=== PATIENT | male | born 1990 | race Caucasian/White ===

== ENCOUNTER 2019-08-18 14:36 | Emergency (ER) | payer BC, SELFPAY ==
[2019-08-18 14:51] VITALS: BP 148/105; PULSE 110; RESP 16; TEMP 37.6; O2SAT 97
--- NOTE | 2019-08-18 15:01 | ED.URI ---
HPI - URI/Sore Throat General Chief Complaint: Upper Respiratory Infection Stated Complaint: Sore throat/Congestion Time Seen by Provider: 08/18/19 14:52 Source: patient and RN notes reviewed Mode of arrival: ambulatory Limitations: no limitations History of Present Illness HPI Narrative: Patient presents today complaining of nasal congestion and slight sore throat since yesterday. Took some NyQuil this morning along with some sinus medication, slept for the following 6 hours, woke up and was feeling well. Since he called into work this morning, he needed to be evaluated. Denies fever, cough, sweats or chills, ear pain, shortness of breath. States that he does have intermittent seasonal allergy symptoms. MD elicited complaint: nasal congestion Related Data Home Medications Medication Instructions Recorded Confirmed No Home Medications 08/18/19 08/18/19 Allergies Allergy/AdvReac Type Severity Reaction Status Date / Time Penicillins Allergy Mild Rash Verified 02/25/19 13:39 venom-honey bee Allergy Unknown Anaphylactic Verified 02/25/19 13:39 Shock Review of Systems Review of Systems: Narrative: CONSTITUTIONAL: Denies body aches, fever, chills, or sweats. EYES: Denies visual changes, redness, or discharge. ENT: Denies rhinorrhea, or otalgia.+ Congestion, sore throat CARDIOVASCULAR: Denies chest pain, palpitations, or edema. RESPIRATORY: Denies cough or dyspnea. GASTROINTESTINAL: Denies abdominal pain, nausea, vomiting, or diarrhea. GENITOURINARY: Denies dysuria or hematuria. SKIN: Denies rash, itching, or wounds. MUSCULOSKELETAL: Denies back pain, joint pain, or myalgia. NEUROLOGIC: Denies headache, numbness, tingling, or weakness. PSYCH: Denies depression or anxiety. [facility] Social History Social History (Updated 02/25/19 @ 13:47 by Zee Romero) Smoking status: Current every day smoker Tobacco type: cigarettes Alcohol intake: never Substance use: never Gender identity (if verbalized by the patient): Male Comments At time of signature, I have reviewed and agree with nursing past medical, surgical, social and family history unless otherwise noted. Please see nursing chart for further information. There is no relevant family history pertinent to the presenting complaint Exam Narrative: Exam Narrative: GENERAL: Well-appearing, well-nourished, and in no acute distress. HEAD: Normocephalic, atraumatic. EYES: EOMI. No redness or drainage. Conjunctivae normal. ENT: Mucous membranes pink and moist. Nares clear. No rhinorrhea. TMs normal bilaterally. Throat normal. Uvula midline. NECK: Normal AROM. Supple. No lymphadenopathy. CHEST: No respiratory distress. Clear to auscultation. HEART: Regular rate and rhythm. No murmur appreciated. Normal peripheral pulses. EXTREMITIES: Normal range of motion. No edema. SKIN: Warm, dry, no rash. Capillary refill normal. Normal skin turgor. NEURO: No focal deficits. Alert and oriented x3. Gait steady. PSYCH: Normal affect. No signs of depression or anxiety. Course Vital Signs Vital signs: Vital Signs Temperature 99.6 F 08/18/19 14:51 Pulse Rate 110 H 08/18/19 14:51 Respiratory Rate 16 08/18/19 14:51 Blood Pressure 148/105 H 08/18/19 14:51 Pulse Oximetry 97 08/18/19 14:51 Temperature 99.6 F 08/18/19 14:51 Pulse Rate 110 H 08/18/19 14:51 Respiratory Rate 16 08/18/19 14:51 Blood Pressure 148/105 H 08/18/19 14:51 Pulse Oximetry 97 08/18/19 14:51 Reviewed. Pt has been instructed to follow up with his PCP regarding his elevated blood pressure today. MDM - URI/Sore Throat Differential Diagnosis Differential diagnosis: Likely upper respiratory infection, sinusitis, viral infection and pharyngitis Critical Care Time Critical Care Time Critical Care Time: No Discharge Plan Discharge Clinical Impression: Allergic rhinitis Qualifiers: Allergic rhinitis trigger: unspecified Allergic rhinitis seasonality: unspecified Qu
== END 2019-08-18 15:11 | disposition home or self-care (01) ==
PROVIDERS: Emergency Provider Nurse Practitioner
DX: J30.9 Allergic rhinitis, unspecified (principal); F17.210 Nicotine dependence, cigarettes, uncomplicated
CPT/HCPCS: 99211; G0463

== ENCOUNTER 2020-10-27 12:52 | Emergency (ER) | payer BC, SELFPAY ==
[2020-10-27 13:03] VITALS: BP 161/103; PULSE 98; RESP 16; TEMP 37; O2SAT 99
--- NOTE | 2020-10-27 13:32 | ED.SKABFB ---
HPI - Skin/Abscess/Foreign Bdy General Chief complaint: Skin/Abscess/Foreign Body Stated complaint: Insect bite on side Time Seen by Provider: 10/27/20 13:25 Source: patient and RN notes reviewed Mode of arrival: ambulatory Limitations: no limitations History of Present Illness HPI narrative: Patient presents today complaining of a draining lesion to the right hip, possibly a spider bite. A pimple-like lesion started 3 days ago and has been worsening since onset. He has been applying Neosporin without relief. States the area is draining clear fluid. It is becoming more painful and red. MD complaint: insect bite/sting and abscess/boil Related Data Allergies Allergy/AdvReac Type Severity Reaction Status Date / Time Penicillins Allergy Mild Rash Verified 02/25/19 13:39 venom-honey bee Allergy Unknown Anaphylactic Verified 02/25/19 13:39 Shock Review of Systems Review of Systems: Narrative: CONSTITUTIONAL: Denies body aches, fever, chills, or sweats. EYES: Denies visual changes, redness, or discharge. ENT: Denies rhinorrhea, congestion, sore throat, or otalgia. CARDIOVASCULAR: Denies chest pain, palpitations, or edema. RESPIRATORY: Denies cough or dyspnea. GASTROINTESTINAL: Denies abdominal pain, nausea, vomiting, or diarrhea. GENITOURINARY: Denies dysuria or hematuria. SKIN: Denies rash, itching. + Possible insect bite to the right hip MUSCULOSKELETAL: Denies back pain, joint pain, or myalgia. NEUROLOGIC: Denies headache, numbness, tingling, or weakness. PSYCH: Denies depression or anxiety. [facility] Social History Social History (Updated 02/25/19 @ 13:47 by Zee Romero) Smoking status: Current every day smoker Tobacco type: cigarettes Alcohol intake: never Substance use: never Gender identity (if verbalized by the patient): Male Comments At time of signature, I have reviewed and agree with nursing past medical, surgical, social and family history unless otherwise noted. Please see nursing chart for further information. There is no relevant family history pertinent to the presenting complaint Exam Narrative: Exam Narrative: GENERAL: Well-appearing, well-nourished, and in no acute distress. HEAD: Normocephalic, atraumatic. EYES: EOMI. No redness or drainage. Conjunctivae normal. ENT: Mucous membranes pink and moist. NECK: Normal AROM. CHEST: No respiratory distress. EXTREMITIES: Normal range of motion. No edema. SKIN: Warm, dry, no rash. Capillary refill normal. Normal skin turgor. 8 x 15 cm area of redness with a 5 x 5 cm round area of induration to the right lateral hip with 0.5 cm round ruptured superficial vesicle draining serous fluid. Mildly tender to palpation. NEURO: No focal deficits. Alert and oriented x3. Gait steady. PSYCH: Normal affect. No signs of depression or anxiety. Course Vital Signs Vital signs: Vital Signs Temperature 98.6 F 10/27/20 13:03 Pulse Rate 98 10/27/20 13:03 Respiratory Rate 16 10/27/20 13:03 Blood Pressure 161/103 H 10/27/20 13:03 Pulse Oximetry 99 10/27/20 13:03 Temperature 98.6 F 10/27/20 13:03 Pulse Rate 98 10/27/20 13:03 Respiratory Rate 16 10/27/20 13:03 Blood Pressure 161/103 H 10/27/20 13:03 Pulse Oximetry 99 10/27/20 13:03 Reviewed. Pt has been instructed to follow up with his PCP regarding his elevated blood pressure today. MDM - Skin/Abscess/Foreign Bdy Differential Diagnosis Differential diagnosis: Likely abscess of skin or subcutaneous tissue, cellulitis, insect bites and impetigo Critical Care Time Critical Care Time Critical Care Time: No Discharge Plan Discharge Clinical Impression: Cellulitis Qualifiers: Site of cellulitis: extremity Site of cellulitis of extremity: lower extremity Laterality: right Qualified Code(s): L03.115 - Cellulitis of right lower limb Patient Disposition: Home, Self-Care Condition: Stable Instructions: Antibiotic Form, Cellulitis (ED) Additional Instructions
== END 2020-10-27 13:38 | disposition home or self-care (01) ==
PROVIDERS: Emergency Provider Nurse Practitioner
DX: L03.115 Cellulitis of right lower limb (principal); F17.210 Nicotine dependence, cigarettes, uncomplicated
CPT/HCPCS: 99213; G0463

== ENCOUNTER 2021-01-17 13:02 | Emergency (ER) | payer BC, SELFPAY ==
--- NOTE | 2021-01-17 13:09 | ED.SKABFB ---
HPI - Skin/Abscess/Foreign Bdy General Chief complaint: Skin/Abscess/Foreign Body Stated complaint: yeast infection Time Seen by Provider: 01/17/21 13:15 Source: patient and RN notes reviewed Mode of arrival: ambulatory Limitations: no limitations History of Present Illness HPI narrative: 30-year-old male presents to the [facility] with complaints of I think I have a yeast infection on my penis. States has been there for a couple of weeks and keeps getting worse. Has not seen anybody. No treatment prior to arrival MD complaint: rash Related Data Allergies Allergy/AdvReac Type Severity Reaction Status Date / Time Penicillins Allergy Mild Rash Verified 02/25/19 13:39 venom-honey bee Allergy Unknown Anaphylactic Verified 02/25/19 13:39 Shock Review of Systems Review of Systems: All systems reviewed & are unremarkable except as noted in HPI and below Constitutional: Constitutional: Reports no additional constitutional complaints, Denies chills and Denies fever(s) Eyes: Eyes: Reports no additional eye complaints ENT: Reports system reviewed and no additional complaints, except as documented Cardiovascular: Cardiovascular: Reports no additional cardiovascular complaints Respiratory: Respiratory: Reports no additional respiratory complaints Gastrointestinal: Gastrointestinal: Reports no additional gastrointestinal complaints Genitourinary: Genitourinary: Reports as per HPI, Reports genital lesions, Denies dysuria, Denies penile discharge, Denies testicular pain, Denies urinary frequency and Denies urinary incontinence Musculoskeletal: Musculoskeletal: Reports no additional musculoskeletal complaints Integumentary/Breasts: Skin/Breast: Reports as per HPI Neurologic: Reports system reviewed and no additional complaints, except as documented Psychiatric: Psychiatric: Reports no additional psychiatric complaints Allergic/Immunologic: Allergic/Immunologic: Reports no additional allergic/immunologic complaints [facility] Past Medical History Medical History No significant medical problems Surgical History Surgical History (Updated 01/17/21 @ 19:17 by Margarita Escalera) No significant past surgical history Social History Social History Smoking status: Current every day smoker Tobacco type: cigarettes Alcohol intake: never Substance use: never Gender identity (if verbalized by the patient): Male Comments At the time of my signature, I reviewed and agree with the nursing past medical, surgical, social, and family history. There is no relevant family history pertinent to the patient complaint. Exam Const: General: healthy appearing, no acute distress and alert Nutritional Appearance: well nourished and obese Orientation/consciousness: patient oriented x3 Limitations: no limitations HENMT: Head: normal to inspection Eyes: Pupils: Equal, round and reactive pupils present Neck: Neck: normal visual inspection, no lymphadenopathy and no meningeal signs Chest: Chest palpation & inspection: normal inspection of the chest Resp: Effort & Inspection: normal respiratory effort Auscultation: clear to auscultation bilaterally Cardio: Rate: regular rate Rhythm: regular rhythm : Male General Exam: No ecchymosis and Yes erythema (Head of penis) Penis: Yes erythematous, Yes Localized penile swelling present and No Genital lesions present Scrotum: scrotum normal Testes: Testes normal Other: Chaperoned by Vidhi AVILES. Head of penis was red, inflamed. Collection of frequent white yeast noted around penis shaft and head. Back/Spine/Pelvis: Back: no CVA tenderness Skin: General skin exam: normal color Neuro: General: patient oriented x3, moves all extremities, no meningeal signs and no focal motor deficits Speech: normal speech Gait exam (Neuro): Normal gait present Extrem: General: normal to inspection Psych:
[2021-01-17 13:21] VITALS: BP 144/71; PULSE 118; RESP 18; TEMP 35.7; O2SAT 99
== END 2021-01-17 13:30 | disposition home or self-care (01) ==
PROVIDERS: Emergency Provider Nurse Practitioner
DX: B37.49 Other urogenital candidiasis (principal); F17.210 Nicotine dependence, cigarettes, uncomplicated
CPT/HCPCS: 99213; G0463

== ENCOUNTER 2021-03-22 08:46 | Emergency (ER) | payer BC, SELFPAY ==
[2021-03-22 08:57] VITALS: BP 152/94; PULSE 113; RESP 18; TEMP 36.7; O2SAT 100
--- NOTE | 2021-03-22 09:57 | ED.URI ---
HPI - URI/Sore Throat General Chief Complaint: Skin/Abscess/Foreign Body Stated Complaint: Yeast Infection Time Seen by Provider: 03/22/21 09:57 Source: patient Mode of arrival: ambulatory Limitations: no limitations History of Present Illness HPI Narrative: Berry Wallis is a 30 yo male with no known PMH (does not have a pcp) who has a rash on his penis that is tender and gallagher when he urinates. Is unknown whether he is diabetic as he has not been to a primary care doctor and his blood pressure is also elevated. It appears that the patient has had similar complaints and vital signs on the last visit few months ago Related Data Allergies Allergy/AdvReac Type Severity Reaction Status Date / Time Penicillins Allergy Mild Rash Verified 02/25/19 13:39 venom-honey bee Allergy Unknown Anaphylactic Verified 02/25/19 13:39 Shock Review of Systems Review of Systems: CONSTITUTIONAL: Denies fever, chills, sweats. EYES: Denies visual changes, redness, discharge. ENT: Denies rhinorrhea, congestion, sore throat, otalgia. CARDIOVASCULAR: Denies chest pain, palpitations, edema. RESPIRATORY: Denies dyspnea, wheezing, cough GASTROINTESTINAL: Denies abdominal pain, nausea, vomiting, diarrhea. GENITOURINARY: Denies dysuria, hematuria, abnormal discharge SKIN: Denies rash or itching. NEUROLOGIC: Denies numbness, or focal weakness. PSYCHIATRIC: Denies anxiety or depression. Depression end of penis recurrent PMFSH Past Medical History Medical History (Updated 03/22/21 @ 10:19 by Nicolette Cohn CNP) High blood pressure Social History Social History (Updated 03/22/21 @ 10:11 by Nicolette Cohn CNP) Smoking status: Current every day smoker Tobacco type: cigarettes Alcohol intake: current Alcohol use details: 2 pints on weekend Substance use: never Gender identity (if verbalized by the patient): Male Comments At time of signature, I agree with nursing past medical, surgical, social and family history. There is no relevant family history pertinent to the presenting complaint. Exam Narrative: GENERAL: This is a well-nourished, well-developed patient, in mild distress. HEAD: normocephalic, atraumatic. EYES: Sclera clear/white. Vision is grossly intact. EARS: External ears normal, . Hearing grossly intact. NOSE: External nose normal without nasal discharge, nares without redness, no rhinorrhea. THROAT: Mucous membranes moist, NECK: Neck supple, CARDIOVASCULAR: Regular rate and rhythm without murmurs, gallops, or rubs. RESPIRATORY: Clear to auscultation. Breath sounds equal bilaterally. No wheezes, rales, or rhonchi. GASTROINTESTINAL: Abdomen soft, non-tender, : Rash and open lesion at end of penis, patient is uncircumcised SKIN: warm, intact with no suspicious lesions or rash, good texture and turgor. NEURO: awake, alert, and oriented to person, place and time. There were no obvious focal neurologic abnormalities. Steady gait EXTREMITIES: Normal range of motion. BACK: Nontender without deformity Course Course Emergency Course: Patient has recurrent visit for yeast infection on the end of his penis. His blood pressure remains elevated as it was at the last visit; Because of recurrent yeast infection in the male blood sugar was checked and is 328 Patient started on low-dose lisinopril for his blood pressure that is elevated at 152/94 out and is recurrent He is sent to a primary care physician for diabetes management and re-evaluation of BP management Vital Signs Vital signs: Vital Signs Temperature 98.0 F 03/22/21 08:57 Pulse Rate 113 H 03/22/21 08:57 Respiratory Rate 18 03/22/21 08:57 Blood Pressure 152/94 H 03/22/21 08:57 Pulse Oximetry 100 03/22/21 08:57 Temperature 98.0 F 03/22/21 08:57 Pulse Rate 113 H 03/22/21 08:57 Respiratory Rate 18 03/22/21 08:57 Blood Pressure 152/94 H 03/22/21 08:57 Pulse Oximetry 100 03/22/21 08:57 MDM - URI/Sore Throat Differential Diag
[2021-03-22 10:17] LABS: Glucose Point of Care 328 mg/dl (65-105)
--- NOTE | 2021-03-22 11:27 | PC.NURSE ---
1015-- accucheck is 328mg/dl
== END 2021-03-22 10:27 | disposition home or self-care (01) ==
PROVIDERS: Emergency Provider Nurse Practitioner
DX: B37.49 Other urogenital candidiasis (principal); E11.9 Type 2 diabetes mellitus without complications
CPT/HCPCS: 82948; 99213; G0463

== ENCOUNTER 2022-03-24 08:10 | Emergency (ER) | payer OTHER, SELFPAY ==
--- NOTE | 2022-03-24 08:12 | ED.URI ---
HPI - URI/Sore Throat General Chief Complaint: Upper Respiratory Infection Stated Complaint: Sore Throat, Cough Time Seen by Provider: 03/24/22 08:16 Source: patient, RN notes reviewed and old records reviewed Mode of arrival: ambulatory Limitations: no limitations History of Present Illness HPI Narrative: 31-year-old male presents to the [facility] with complaints of sore throat cough since Thursday after using an E cigarette. Has been coughing with sore throat. Took 1 DayQuil yesterday. No other treatment prior to arrival. Has a history of pre diabetes high cholesterol and hypertension. Patient denies any chest pain, abdominal pain or fevers. No nausea vomiting or diarrhea. MD elicited complaint: cough and sore throat Onset (ago): day(s) (2) Consistency: constant Related Data Allergies Allergy/AdvReac Type Severity Reaction Status Date / Time venom-honey bee Allergy Severe Anaphylactic Verified 03/24/22 11:21 Shock Penicillins Allergy Mild Rash Verified 03/24/22 11:21 Review of Systems Review of Systems: All systems reviewed & are unremarkable except as noted in HPI and below Constitutional: Constitutional: Reports no additional constitutional complaints Eyes: Eyes: Reports no additional eye complaints ENT: Reports as per HPI and Reports sore throat Cardiovascular: Cardiovascular: Reports no additional cardiovascular complaints, Denies chest pain and Denies dyspnea Respiratory: Respiratory: Reports as per HPI, Denies chest congestion, Reports cough and Denies dyspnea Gastrointestinal: Gastrointestinal: Reports no additional gastrointestinal complaints, Denies abdominal pain, Denies nausea and Denies vomiting Musculoskeletal: Musculoskeletal: Reports no additional musculoskeletal complaints Integumentary/Breasts: Skin/Breast: Reports system reviewed and no additional complaints, except as docu Neurologic: Reports system reviewed and no additional complaints, except as documented Psychiatric: Psychiatric: Reports no additional psychiatric complaints Allergic/Immunologic: Allergic/Immunologic: Reports no additional allergic/immunologic complaints [facility] Past Medical History Medical History (Updated 03/24/22 @ 08:29 by Margarita Escalera APRN) High blood pressure High cholesterol Social History Social History Smoking status: Current every day smoker Tobacco type: cigarettes Alcohol intake: current Alcohol use details: 2 pints on weekend Substance use: never Gender identity (if verbalized by the patient): Male Comments At the time of my signature, I reviewed and agree with the nursing past medical, surgical, social, and family history. There is no relevant family history pertinent to the patient complaint. Exam Const: General: cooperative, healthy appearing, comfortable, no acute distress, well developed, alert, average body habitus and well nourished Nutritional Appearance: well nourished and obese Orientation/consciousness: patient oriented x3 Limitations: no limitations HENMT: Head: normal to inspection Ears: hearing grossly normal bilaterally and external ears normal Face/Nose/Sinus: Normal external nose present, Normal nares present, Normal nasal mucous membranes and turbinates present and normal facial exam Face and sinus: normal facial exam Mouth: Yes Normal oral and palatal mucosa present, Yes lip normal and Yes moist mucous membranes Throat: posterior oropharynx normal, tonsils normal, uvula midline and no uvular edema Eyes: General: appearance normal, both eyes and all related structures Alignment and Position: alignment normal Periorbital: periorbital findings normal Conjunctivae: conjunctivae normal Pupils: Equal, round and reactive pupils present EOM: EOMs intact bilaterally Neck: Neck: normal visual inspection, full ROM, no lymphadenopathy and no meningeal signs Chest: Chest palpation & inspection: normal inspectio
[2022-03-24 08:15] VITALS: BP 147/78; PULSE 102; RESP 20; TEMP 36.6; O2SAT 99
== END 2022-03-24 08:30 | disposition home or self-care (01) ==
PROVIDERS: Emergency Provider Nurse Practitioner; PCP Emergency Medicine
DX: J40 Bronchitis, not specified as acute or chronic (principal); J02.9 Acute pharyngitis, unspecified; I10 Essential (primary) hypertension; E78.00 Pure hypercholesterolemia, unspecified; R73.03 Prediabetes; F17.210 Nicotine dependence, cigarettes, uncomplicated
CPT/HCPCS: 99211; G0463

== ENCOUNTER 2022-09-25 13:26 | Emergency (ER) | payer OTHER, SELFPAY ==
[2022-09-25] VITALS (15 sets, daily range): BP systolic 155–169; BP diastolic 104–112; PULSE 77–99; RESP 13–28; TEMP 36.5; O2SAT 96–100
--- NOTE | ~2022-09-25 | XR_ITS ---
EXAMINATION: XR chest 2V DATE: 09/25/2022 14:04 INDICATION: Chest pain. TECHNIQUE: Frontal and lateral views of the chest were obtained. COMPARISON: Chest 2 views 02/25/2019 FINDINGS: There is no pneumonia, pleural effusion, or pneumothorax. The heart size is normal. There i s mild chronic anterior wedging of multiple thoracic vertebral bodies. IMPRESSION: 1. No acute cardiopulmonary disease. Reviewed, dictated and finalized at location A.
--- NOTE | 2022-09-25 13:28 | ECG_ITS ---
Rate MO QRSd QT QTc P QRS T Severity 102 156 90 334 435 25 28 16 No Severity Defined SINUS TACHYCARDIA POOR R-WAVE PROGRESSION ABNORMAL RHYTHM ECG COMPARED TO ECG 02/25/2019 12:58:08 NO DIFFERENCE Electronically Signed On 09-26-2022 12:34:10 CDT by Neo Quintero M.D. [facility]
[2022-09-25] MEDS: ASPIRIN 81 MG CHEWABLE TABLET 324 MG PO (13:45)
[2022-09-25 13:46] LABS: Basophils Absolute Auto 0.1 K/mm3 (0.0-0.1); Basophils Percent Auto 0.9 % (0.2-1.2); Eosinophils Absolute Auto 0.1 K/mm3 (0-0.3); Eosinophils Percent Auto 1.4 % (0-4.4); Hemoglobin 14.5 g/dL (14.0-18.0); Immature Granulocyte Absolute 0.04 K/mm3 (0.00-0.031); Immature Granulocyte Percent A 0.4 % (0-0.5); Lymphocytes Percent Auto 30.9 % (18.3-44.2); Mean Corpuscular Hemoglobin 29.8 pg (26-34); Mean Corpuscular Volume 90.3 fl (80-100); Mean Platelet Volume 10.2 fl (7.4-10.4); Monocytes Absolute Auto 0.6 K/mm3 (0.1-0.6); Monocytes Percent Auto 5.9 % (2.6-8.5); Neutrophils Absolute Auto 5.7 K/mm3 (1.3-6.7); Neutrophils Percent Auto 60.5 % (45.5-73.1); Platelet Count Result 227 k/mm3 (150-375); Red Blood Count 4.87 M/mm3 (4.6-6.20); Red Cell Distribution Width 13.5 % (11.5-14.5); White Blood Count 9.4 K/mm3 (4.5-10.0)
[2022-09-25 13:56] LABS: Alanine Aminotransferase 93 U/L (6-50); Albumin Level 4.5 g/dL (3.5-5.1); Alkaline Phosphatase 67 U/L (38-126); Anion Gap 9 mmol/L (8-16); Aspartate Amino Transferase 91 U/L (17-59); Bilirubin,Total 0.7 mg/dL (0.2-1.3); Blood Urea Nitrogen 9 mg/dL (9-20); Calcium 8.2 mg/dL (8.4-10.2); Carbon Dioxide 25 mmol/L (22-30); Chloride 104 mmol/L (98-107); Estimated Glomerular Filt Rate > 60; Glucose 137 mg/dL (65-110); Lipase 35 U/L (23-300); Potassium 3.9 mmol/L (3.4-5.0); Sodium 138 mmol/L (137-145)
[2022-09-25 13:59] LABS: INR 1.1; Partial Thromboplastin Time 25.1 SECONDS (22.3-36.8); Prothrombin Time 14.2 Seconds (11.1-14.7)
[2022-09-25 14:08] LABS: Troponin I < 0.012 ng/mL (0.000-0.034)
--- NOTE | 2022-09-25 14:23 | ED.CHESTPAIN ---
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 for the last 2 days. He denies any aggravating or relieving factors. Patient ran out of lisinopril 5 mg once a day, 2 to 3 weeks ago. Went to see his family physician to get refill. , Patient have a lot of stress at work. He drinks daily at night to calm down. He smokes 1 pack of cigarette every [address] himself to the emergency room. Basically got referred to us because of the epigastric chest tightness. Related Data Allergies Allergy/AdvReac Type Severity Reaction Status Date / Time venom-honey bee Allergy Severe Anaphylactic Verified 09/25/22 14:23 Shock Penicillins Allergy Mild Rash Verified 09/25/22 14:23 Review of Systems Review of Systems: All systems reviewed & are unremarkable except as noted in HPI and below PMFSH Past Medical History Medical History High blood pressure High cholesterol Social History Social History Smoking status: Current every day smoker Tobacco type: cigarettes Alcohol intake: current Alcohol use details: 2 pints on weekend Substance use: never Gender identity (if verbalized by the patient): Male Exam Narrative: General appearance: Well-developed, well-nourished, a little restless Skin: Normal color Head: Normocephalic, nontraumatic Eyes: Clear conjunctiva ENT: Oropharynx normal, ears normal, nose normal Neck: Supple, nontender Chest and respiratory: Airway patent, no respiratory distress, no accessory muscle use Heart: Regular rate/rhythm Abdomen: Soft, nontender, no organomegaly, quiet bowel sounds Vascular: Normal peripheral pulses, normal capillary refill. Musculoskeletal: Normal range of motion, nontender back Neurologic: Alert and oriented ?3, [employer] is normal as tested, no gross motor deficit Course Reevaluation(s) Reevaluation #1: Currently patient is asymptomatic and would like to go home as soon as possible to eat a sandwich Date: 09/25/22 Time: 16:32 Vital Signs Vital signs: Vital Signs Temperature 36.5 C 09/25/22 13:30 Pulse Rate 95 09/25/22 13:30 Respiratory Rate 18 09/25/22 13:30 Blood Pressure 163/106 H 09/25/22 13:30 Pulse Oximetry 98 09/25/22 13:30 Temperature 36.5 C 09/25/22 13:30 Pulse Rate 81 09/25/22 15:31 Respiratory Rate 25 H 09/25/22 15:31 Blood Pressure 160/111 H 09/25/22 15:31 Pulse Oximetry 99 09/25/22 15:31 MDM - Chest Pain MDM Narrative Medical decision making narrative: Patient referred to our emergency room from his family office because of epigastric chest pain tightness for the last 2 days, constant, no aggravating or relieving factors. History of hypertension, ran out of lisinopril 5 mg once a day 2 to 3 weeks ago. Patient denies any shortness of breath or back pain. Blood pressure on arrival to the ED with 163/106. Physical examination showed no significant abnormalities, blood work-up today showed normal white count, normal coags, normal CMP except elevated liver enzymes 91, 93. Patient drinks alcohol every night. First troponin is within normal limit. Chest x-ray showed no acute cardiopulmonary disease, EKG on arrival showed sinus tachycardia at 100 bpm, no acute changes compared to the previous EKG 1 year ago. Patient
[2022-09-25] MEDS: METOPROLOL TARTRATE 50 MG TAB PO (15:04)
[2022-09-25] MEDS: lisinopriL 5 MG TABLET PO (15:04)
[2022-09-25] MEDS: LORazepam (*CRX) 0.5 MG TABLET PO (15:04)
[2022-09-25 15:13] LABS: Lipase 36 U/L (23-300)
== END 2022-09-25 16:39 | disposition home or self-care (01) ==
PROVIDERS: Emergency Provider Emergency Medicine; PCP Emergency Medicine
DX: R07.89 Other chest pain (principal); I10 Essential (primary) hypertension; E78.00 Pure hypercholesterolemia, unspecified; F17.210 Nicotine dependence, cigarettes, uncomplicated; R00.0 Tachycardia, unspecified; R94.31 Abnormal electrocardiogram [ECG] [EKG]
CPT/HCPCS: 36415; 71046; 80053; 83690; 84484; 85025; 85610; 85730; 93005; 99284; A9270

== ENCOUNTER 2024-07-25 17:25 | Emergency (ER) | payer SELFPAY ==
[2024-07-25 17:28] VITALS: BP 155/89; PULSE 104; RESP 16; TEMP 36.9; O2SAT 100
--- OUTSIDE RECORDS SUMMARY | 2024-07-25 18:14 | XMS_ITS | Referral Summary ---
Author Organization [facility] Address [facility] [place] [address] Care Team Providers Care Juice Weigher Name Role Phone Unknown, Notinfile Primary Care Provider Unavail able Allergies Active Allergy Reactions Criticality Noted Date Comments Penicillin Unknown 07/31/2023 Medications HYDROcodone-acet aminophen (NORCO) 5-325 mg per tabletIndication s:Pain Take 1 tablet by mouth every 6 (six) hours as needed for pain 12 tablet 08/01/2023 Active Social History Tobacco Use Types Packs/Day Years Used Date Smoking Tobacco: Never Assessed Personal Safety Answer Date Recorded Have you ever been in or are you currently in a harmful physical or emotional relationship or is someone making you feel afraid or unsafe? 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 [employer] COMPENSATION GENERIC Care Teams Juice Weigher Relationship Specialty Start Date End Date Unknown, Notinfile PCP - General 07/31/23
--- OUTSIDE RECORDS SUMMARY | 2024-07-25 18:14 | XMS_ITS | Clinical Summary ---
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 Gender Identity Not on file Sexual Orientation [...] 08/06/2023 3:28 PM CDT Plan of Treatment Health Maintenance Due Date Last Done Comments Depression Screening 1988 Hepatitis C Screening 1988 DTaP/Tdap/Td Vaccine (1 - Tdap) 1999 Varicella Vaccines (1 of 2 - 13+ 2-dose series) 2001 Hepatitis B Screening 2006 Regular Well Visit/Exam 18-64 2006 Influenza Vaccine (#1) 2023 HPV Vaccines Aged Out No longer eligi ble based on patient's age to complete this topic Pneumococcal vaccine <65 Aged Out No longer eligible based on patient's age to complete this topic Insurance IDPA [facility] [employer] COMPENSATION GENERIC Care Teams Fish Grader Relationship Specialty Start Date End Date Unknown, Notinfile PCP - General 07/31/23
--- OUTSIDE RECORDS SUMMARY | 2024-07-25 18:14 | XMS_ITS | CONTINUITY OF CARE DOCUMENT ---
Author Name alfredito glaser Address Unknown Organization [place] [facility] Address [address] [place] [address] Phone [phone] Care Team Providers Care Brush And Broom Clipper Name Role Phone Mendoza Ricks MD Unavailable [phone] SANDRA CASTRO MD Unavailable [phone] SANDRA CASTRO MD Unavailable [phone] INSURANCE PROVIDERS Payer name Policy type / Coverage type [place] red [employer] party ID [id number] PAY [id number]
--- OUTSIDE RECORDS SUMMARY | 2024-07-25 18:33 | XMS_ITS | CONTINUITY OF CARE DOCUMENT ---
Author Name alfredito glaser Address Unknown Organization [place] [facility] Address [address] [place] [id number] Phone [phone] Care Team Providers Care Crop Farm Workers Name Role Phone Mendoza Ricks MD Unavailable [phone] SANDRA CASTRO MD Unavailable [phone] SANDRA CASTRO MD Unavailable [phone] INSURANCE PROVIDERS Payer name Policy type / Coverage type [place] red republican ID [id number] PAY [id number]
--- NOTE | 2024-07-25 18:45 | ED.GENADULT ---
HPI - General Adult General Chief complaint: Urogenital-Male Stated complaint: Swelling in left groin Time Seen by Provider: 07/25/24 18:22 Source: patient Limitations: no limitations History of Present Illness HPI narrative: 34-year-old with a history of hypertension here with the complaints of swelling has left groin for quite sometime ,pt states he noticed few days ago , pt states it goes up and down , No vomiting or pain at this time Onset (ago): week(s) Location: abdomen Radiation: non-radiation Severity: mild Associated symptoms: denies other symptoms Related Data Allergies Allergy/AdvReac Type Severity Reaction Status Date / Time venom-honey bee Allergy Severe Anaphylactic Verified 07/25/24 17:26 Shock Penicillins Allergy Mild Rash Verified 07/25/24 17:26 Review of Systems Review of Systems: All systems reviewed & are unremarkable except as noted in HPI and below Constitutional: Constitutional: Reports no additional constitutional complaints ENT: Reports system reviewed and no additional complaints, except as documented Cardiovascular: Cardiovascular: Reports no additional cardiovascular complaints Respiratory: Respiratory: Reports no additional respiratory complaints Gastrointestinal: Gastrointestinal: Reports as per HPI Musculoskeletal: Musculoskeletal: Reports no additional musculoskeletal complaints Neurologic: Reports system reviewed and no additional complaints, except as documented PMFSH Past Medical History Medical History High cholesterol High blood pressure Social History Social History Smoking status: Current every day smoker Tobacco type: cigarettes Alcohol intake: current Alcohol use details: 2 pints on weekend Substance use: never Gender identity (if verbalized by the patient): Male Exam Narrative: GENERAL: Well-appearing, well-nourished, and in no acute distress. HEAD: Normocephalic, atraumatic. EYES: PERRLA and EOMI. NECK: Supple. CHEST: Clear to auscultation. No respiratory distress. HEART: Regular rate and rhythm. No murmur heard. Normal peripheral pulses. ABDOMEN: Soft, nontender, nondistended, normal active bowel sounds. Has a reducible left inguinal hernia EXTREMITIES: Normal range of motion. No edema. SKIN: Warm, dry, no rash. NEURO: No focal deficits. Alert and oriented x3. PSYCH: Normal mood and affect. Course Course Emergency Course: Informed patient about the diagnosis neck recommended him to follow up with the surgeon on outpatient basis for hernia repair. He does feel comfortable going home. Vital Signs Vital signs: Vital Signs Temperature 36.9 C 07/25/24 17:28 Pulse Rate 104 H 07/25/24 17:28 Respiratory Rate 16 07/25/24 17:28 Blood Pressure 155/89 H 07/25/24 17:28 Pulse Oximetry 100 07/25/24 17:28 Oxygen Delivery Room Air 07/25/24 17:28 Temperature 36.9 C 07/25/24 17:28 Pulse Rate 104 H 07/25/24 17:28 Respiratory Rate 16 07/25/24 17:28 Blood Pressure 155/89 H 07/25/24 17:28 Pulse Oximetry 100 07/25/24 17:28 Oxygen Delivery Room Air 07/25/24 17:28 Medical Decision Making Vital Signs Vital Signs: Vital Signs Temperature 36.9 C 07/25/24 17:28 Pulse Rate 104 H 07/25/24 17:28 Respiratory Rate 16 07/25/24 17:28 Blood Pressure 155/89 H 07/25/24 17:28 Pulse Oximetry 100 07/25/24 17:28 Oxygen Delivery Room Air 07/25/24 17:28 Temperature 36.9 C 07/25/24 17:28 Pulse Rate 104 H 07/25/24 17:28 Respiratory Rate 16 07/25/24 17:28 Blood Pressure 155/89 H 07/25/24 17:28 Pulse Oximetry 100 07/25/24 17:28 Oxygen Delivery Room Air 07/25/24 17:28 Discharge Plan Discharge Clinical Impression: Inguinal hernia Qualifiers: Obstruction and gangrene presence: without obstruction or gangrene Laterality: unilateral Recurrence: not specified as recurrent Qualified Code(s): K40.90 - Unilateral inguinal hernia, without obstruction or gangrene, not specified as recurrent Patient Disposition: Home Condition: Stable Instructions: Inguinal Hernia (ED) Additional Instructions: rturn to ER if you have pain , and the hernia is not going back Patient Language: Scottish Prescriptions: No Action lisinopril 5 mg tablet 5 mg PO DAILY Qty: 30 0RF lisinopril 10 mg tablet 10 mg PO DAILY Qty: 30 0RF Follow-up/Referrals: Bonita Tolbert MD [Physician] - Mati Parks MD [Primary Care Provider] - Time of Disposition: 18:52
== END 2024-07-25 19:13 | disposition home or self-care (01) ==
PROVIDERS: Emergency Provider Family Medicine; PCP Emergency Medicine
DX: K40.90 Unilateral inguinal hernia, without obstruction or gangrene, not specified as recurrent (principal); I10 Essential (primary) hypertension; E78.00 Pure hypercholesterolemia, unspecified; F17.210 Nicotine dependence, cigarettes, uncomplicated; Z79.899 Other long term (current) drug therapy
CPT/HCPCS: 99281